=== PATIENT | female | born 1985 | race African-American/Black ===

== ENCOUNTER → 2017-05-02 | Outpatient (CLI) | payer OTHER ==
[~2017-05-02] MED LIST: FLUC200T PO; METR0.7510 PV; ONDA4TAB46 PO; SULF800T23 PO
== END | disposition home or self-care (01) ==
LOC: C.PAPS 12:47
PROVIDERS: ATTEND Physician Assistant
DX: Z12.4 Encounter for screening for malignant neoplasm of cervix (principal)

== ENCOUNTER → 2017-05-02 | Outpatient (CLI) | payer OTHER | END | disposition home or self-care (01) | LOC: C.LABSPEC 11:32 | PROVIDERS: ATTEND Physician Assistant | DX: N89.8 Other specified noninflammatory disorders of vagina (principal) ==

== ENCOUNTER 2017-06-25 04:24 | Emergency (ER) | payer OTHER ==
[~2017-06-25] VITALS: Ht 160 cm; Wt 74.7 kg
[2017-06-25 04:28] VITALS: Ht 160 cm; Wt 74.7 kg
[2017-06-25] MEDS ORDERED: FLUC200T PO (04:56)
[2017-06-25] MEDS ORDERED: METR0.7510 PV (04:56)
[2017-06-25] MEDS ORDERED: SODIUM CHLORIDE 0.9% 1000ML 1,000 ML IV STA (05:29)
[2017-06-25] MEDS ORDERED: ONDANSETRON INJ 2 MG/ML 2 ML VIAL IV STA (05:29)
[2017-06-25 05:43] LABS: BASO % 0.2 %; BASO ABS # 0.02 K/uL (0-0.2); COMPLETE YES; EOS % 1.4 %; HEMATOCRIT 36.6 % (37-47); IG% 0.4 %; LYMPH % 15.9 %; LYMPH ABS # 1.36 K/uL (1.2-3.4); MEAN CELL VOLUME 80.3 fL (80-100); MEAN CORPUSCULAR HEMOGLOBIN 28.5 pg (25-34); MEAN CORPUSCULAR HGB CONC 35.5 g/dl (32-36); MEAN PLATELET VOLUME 10.4 fL (7.4-10.4); MONO % 9.1 %; PLATELET COUNT 327 K/uL (130-400); RED BLOOD COUNT 4.56 M/uL (4.2-5.4); WHITE BLOOD COUNT 8.56 K/uL (4.8-10.8)
[2017-06-25 06:04] LABS: BUN/CREATININE RATIO 10.3 (10-20); CREATININE 0.88 mg/dl (0.60-1.20); POTASSIUM 3.2 mmol/L (3.5-5.1)
[2017-06-25] MEDS ORDERED: ONDA4TAB46 PO (06:19)
--- NOTE | 2017-06-25 06:26 | EMERGENCY ROOM VISIT NOTE ---
History Report prepared by Guillaume: Natalie Huerta Under the Supervision of: Dr. Priyanka Jolley D.O. First contact with patient: 05:09 Chief Complaint: NAUSEA Stated Complaint: NAUSEA/VOMITING/DIZZY Nursing Triage Summary: Nausea and vomiting since midnight. Pt is 6wks . History of Present Illness The patient is a 32 year old female who presents to the Emergency Room with complaints of an episode of nausea starting this morning. The patient states that she is and has been sick throughout the . She reports that this morning she was doing her hair and was bent over for a while. She states that when she sat up, she became very dizzy and nauseous. She reports that she vomited and it only made it worse. She states she tried to lie down and drink some water with no relief. She states she came to the ED because her dizziness continued to worsen. She states that every time she moved her head she felt like she was going to fall over or pass out. She notes that she struggled to talk and denies ever having this before. She notes her LNMP was May 09. She has . She notes she is not planning to keep this . She denies abdominal pain. Source of History: patient Onset: this morning Position: other (global) Quality: other (global) Timing: other (episode) Modifying Factors (Worsening): other (vomiting) Associated Symptoms: + vomiting, No abdominal pain Note: The patient complains of dizziness. The patient denies ever having these symptoms before Review of Systems See HPI for pertinent positives & negatives. A total of 10 systems reviewed and were otherwise negative. Past Medical & Surgical Medical Problems: (1) Kidney stone Family History No pertinent family history Social History Smoking Status: Never Smoker Alcohol Use: occasionally Marital Status: in relationship Housing Status: lives with family Occupation Status: employed Current/Historical Medications Scheduled Metronidazole Vaginal (Metrogel Vag Gel), 1 APPL PV DAILY Scheduled PRN Fluconazole (Diflucan), 1 TAB PO UD PRN for yeast Ondansetron Hcl (Zofran), 4 MG PO Q6 PRN for Nausea Allergies Coded Allergies: Ketorolac Tromethamine (Verified Allergy, Unknown, hives, 06/25/17) Physical Exam Vital Signs Date Time Temp Pulse Resp B/P (MAP) Pulse Ox O2 Delivery O2 Flow Rate FiO2 06/25/17 06:50 36.5 90 22 121/79 100 06/25/17 06:23 36.5 90 22 121/79 100 Room Air 06/25/17 04:29 104 06/25/17 04:28 37.1 110 27 132/86 95 Room Air Physical Exam HEENT: Head - normocephalic and atraumatic Pupils are equal, round, and reactive to light. Extraocular eye muscles are intact, and sclera are anicteric. Nose - moist nasal mucosa without discharge. Mouth - moist buccal mucosa. Oropharynx is nonerythematous and there is no tonsillar exudate or edema noted. Neck: Supple; no JVD, nuchal rigidity, cervical lymphadenopathy. Heart: Regular rate and rhythm. There is a normal S1 and S2 with no murmurs, clicks, or gallops appreciated. Lungs: Clear to auscultation bilaterally with no wheezes, rales, or rhonchi. Abdomen: Soft, completely nontender, nondistended, with good bowel sounds. There are no palpable pulsatile masses or hepatosplenomegaly. There is no guarding, rigidity, or rebound noted. Extremities: No evidence of cyanosis, clubbing, or edema. There are easily palpable peripheral pulses. Skin: warm and dry with good turgor and no rashes. Medical Decision & Procedures Laboratory Results 06/25/17 04:30 Red Blood Count 4.56, Mean Corpuscular Volume 80.3, Mean Corpuscular Hemoglobin 28.5, Mean Corpuscular Hemoglobin Concent 35.5, Mean Platelet Volume 10.4, Neutrophils (%) (Auto) 73.0, Lymphocytes (%) (Auto) 15.9, Monocytes (%) (Auto) 9.1, Eosinophils (%) (Auto) 1.4, Basophils (%) (Auto) 0.2, Neutrophils # (Auto) 6.25, Lymphocytes # (Auto) 1.36, Monocytes # (Auto) 0.78, Eosinophils # (Auto) 0.12, Basophils # (Auto) 0.02 06/25/17 04:30 Test 06/25/17 04:30 White Blood Count 8.56 K/uL (4.8-10.8) Red Blood Count 4.56 M/uL (4.2-5.4) Hemoglobin 13.0 g/dL (12.0-16.0) Hematocrit 36.6 % (37-47) Mean Corpuscular Volume 80.3 fL (80-100) Mean Corpuscular Hemoglobin 28.5 pg (25-34) Mean Corpuscular Hemoglobin Concent 35.5 g/dl (32-36) Platelet Count 327 K/uL (130-400) Mean Platelet Volume 10.4 fL (7.4-10.4) Neutrophils (%) (Auto) 73.0 % Lymphocytes (%) (Auto) 15.9 % Monocytes (%) (Auto) 9.1 % Eosinophils (%) (Auto) 1.4 % Basophils (%) (Auto) 0.2 % Neutrophils # (Auto) 6.25 K/uL (1.4-6.5) Lymphocytes # (Auto) 1.36 K/uL (1.2-3.4) Monocytes # (Auto) 0.78 K/uL (0.11-0.59) Eosinophils # (Auto) 0.12 K/uL (0-0.5) Basophils # (Auto) 0.02 K/uL (0-0.2) RDW Standard Deviation 37.7 fL (36.4-46.3) RDW Coefficient of Variation 12.9 % (11.5-14.5) Immature Granulocyte % (Auto) 0.4 % Immature Granulocyte # (Auto) 0.03 K/uL (0.00-0.02) Anion Gap 9.0 mmol/L (3-11) Est Creatinine Clear Calc Drug Dose 90.5 ml/min Estimated GFR () 102.2 Estimated GFR (Non- 88.2 BUN/Creatinine Ratio 10.3 (10-20) Calcium Level 9.0 mg/dl (8.5-10.1) Laboratory results per my review. Medications Administered Medications (Trade) Dose Ordered Sig/Chris Route Start Time Stop Time Status Last Admin Dose Admin Sodium Chloride 1,000 ml @ 999 mls/hr Q1H1M STAT IV 06/25/17 05:29 06/25/17 06:29 DC 06/25/17 05:50 999 MLS/HR Ondansetron HCl (Zofran Inj) 4 mg NOW STAT IV 06/25/17 05:29 06/25/17 05:31 DC 06/25/17 05:51 4 MG Procedure 0529: Ordered Zofran Inj 4 mg IV, NSS 1000 ml @ 999 mls/hr IV. ED Course 0520: Past medical records reviewed. The patient was evaluated in room B7. A complete history and physical exam was performed. An IV lock was initiated and labs are drawn as above. 0529: Ordered Zofran Inj 4 mg IV, NSS 1000 ml @ 999 mls/hr IV. 0613: Upon reevaluation, the patient is feeling much better and is drinking Gatorade. I discussed findings and results with her. She verbalized agreement of the treatment plan. The patient was discharged home. Medical Decision This is a 32-year-old female patient who is 6 weeks presenting to the emergency department with lightheadedness and dizziness associated with vomiting. Differential diagnoses include dehydration, anemia, hyperemesis gravidarum. LABS: No leukocytosis Stable H&H Potassium slightly low at 3.2 Normal renal function The patient gives a history of vomiting during her first trimester and extreme nausea. She received IV Zofran and saline while here in the emergency department is feeling much better. Impression Primary Impression: Hypokalemia Additional Impressions: First trimester Vomiting affecting Scribe Attestation The scribe's documentation has been prepared under my direction and personally reviewed by me in its entirety. I confirm that the note above accurately reflects all work, treatment, procedures, and medical decision making performed by me. Departure Information Dispostion Home / Self-Care Prescriptions Ondansetron Hcl (ZOFRAN) 4 Mg Tab 4 MG PO Q6 Y for Nausea, #20 TAB Prov: Priyanka Jolley D.O. 06/25/17 Referrals No Doctor, Assigned (PCP) Forms HOME CARE DOCUMENTATION FORM, IMPORTANT VISIT INFORMATION Patient Instructions My [facility] Additional Instructions Rest. Take plenty of clear liquids Take a bland diet Zofran - 1 tab. every 4-6 hours for nausea Return to the ER for any abdominal pain Take foods high in potassium Problem Qualifiers
[2017-06-25 06:50] VITALS: BP 121/79; PULSE 90; TEMP 36.5; O2SAT 100
== END 2017-06-25 06:51 | disposition home or self-care (01) ==
LOC: EDBD 04:24 → C.EDB 04:25
DX: O21.1 Hyperemesis gravidarum with metabolic disturbance (principal); Z3A.01 Less than 8 weeks gestation of pregnancy; Z87.442 Personal history of urinary calculi; Z88.8 Allergy status to other drugs, medicaments and biological substances

== ENCOUNTER → 2017-07-31 | Outpatient (CLI) | payer OTHER ==
[~2017-07-31] MED LIST changes: -SULF800T23 PO
[2017-08-04 08:03] LABS: CHLAMYDIA TRACH RNA*** NOT DETECTED (NOT DETECTED); GC (NEIS GONORRHOEAE)RNA** NOT DETECTED (NOT DETECTED)
== END | disposition home or self-care (01) ==
LOC: C.LABSPEC 13:30
PROVIDERS: ATTEND Physician Assistant
DX: N89.8 Other specified noninflammatory disorders of vagina (principal)

== ENCOUNTER → 2017-08-22 | Outpatient (CLI) | payer OTHER | END | disposition home or self-care (01) | LOC: C.LABSPEC 17:00 | PROVIDERS: ATTEND Physician Assistant | DX: N89.8 Other specified noninflammatory disorders of vagina (principal) ==

== ENCOUNTER 2017-10-08 10:55 | Emergency (ER) | payer OTHER ==
[~2017-10-08] VITALS: Ht 160 cm; Wt 75.5 kg
[2017-10-08 11:04] VITALS: Ht 160 cm; Wt 75.5 kg
[2017-10-08] MEDS ORDERED: SODIUM CHLORIDE 0.9% 1000ML 1,000 ML IV STA (11:43)
[2017-10-08] MEDS ORDERED: ACETAMINOPHEN 500 MG TAB PO STA (11:43)
[2017-10-08 12:10] LABS: BASO % 0.1 %; BASO ABS # 0.01 K/uL (0-0.2); COMPLETE YES; HEMATOCRIT 38.8 % (37-47); IG% 0.3 %; LYMPH % 9.6 %; LYMPH ABS # 0.97 K/uL (1.2-3.4); MEAN CELL VOLUME 81.7 fL (80-100); MEAN CORPUSCULAR HEMOGLOBIN 28.2 pg (25-34); MEAN CORPUSCULAR HGB CONC 34.5 g/dl (32-36); MEAN PLATELET VOLUME 10.3 fL (7.4-10.4); PLATELET COUNT 251 K/uL (130-400); RED BLOOD COUNT 4.75 M/uL (4.2-5.4); WHITE BLOOD COUNT 10.12 K/uL (4.8-10.8)
--- NOTE | 2017-10-08 12:25 | DIAGNOSTIC IMAGING REPORT ---
CHEST 2 VIEWS ROUTINE CLINICAL HISTORY: Fever. COMPARISON STUDY: No previous studies for comparison. FINDINGS: Lung volumes are normal. Lungs are clear. No pneumothorax or pleural effusion is present. Pulmonary vascularity is normal. Cardiomediastinal silhouette is normal. IMPRESSION: No acute cardiopulmonary findings. Electronically signed by: Jam Dunham M.D. 10/08/2017 12:23 PM Dictated Date/Time: 10/08/2017 12:23 PM
[2017-10-08 12:27] LABS: BUN/CREATININE RATIO 2.7 (10-20); CALCIUM 8.7 mg/dl (8.5-10.1); CREATININE 0.89 mg/dl (0.60-1.20); POTASSIUM 3.8 mmol/L (3.5-5.1)
[2017-10-08 13:26] LABS: URINE APPEARANCE CLEAR (CLEAR); URINE BILIRUBIN NEG (NEG); URINE COLOR YELLOW; URINE EPITHELIAL CELL AUTO >30 /lpf (0-5); URINE NITRITE NEG (NEG); URINE SPECIFIC GRAVITY 1.009 (1.000-1.030); UROBILINOGEN NEG (NEG)
[2017-10-08 13:34] LABS: MANUAL MICROSCOPIC REQUIRED? NO; REVIEW REQ? NO
[2017-10-08] MEDS ORDERED: SULFAMETHOXAZOLE/TRIMETHOPRIM DS 800/160MG TAB PO STA (13:47)
[2017-10-08] MEDS ORDERED: SULF800T23 PO (13:58)
--- NOTE | 2017-10-08 13:58 | EMERGENCY ROOM VISIT NOTE ---
ED Visit Note First contact with patient: 11:10 CHIEF COMPLAINT: Fever and muscle aches 3 days HISTORY OF PRESENT ILLNESS: Patient is a generally healthy 32-year-old - [place] female who presents emergency department for evaluation of "flulike symptoms" over the last several days. She states that she woke up on Friday with flulike symptoms, she describes subjectively feeling hot and then having chills, and generalized body and muscle aches. She felt a little bit better throughout the day, and her symptoms worsened again Friday evening, and persisted for the next 3 days. The first time she checked her temperature was last evening, it was 104F. She denies any associated cough, sinus or nasal congestion or sore throat. No ear pain. She denies any skin rashes. No nausea or vomiting. She has been taking DayQuil and NyQuil for her symptoms, and has increased her fluid intake. Her temperature prior to arrival in the emergency department was 100F orally. She denies any specific sick contacts. She denies any diarrhea. She does note that her urine seemed clear over the weekend, but then she noted some pain with voiding, some suprapubic discomfort and an odor to her urine, and she is concerned that she could have a UTI. She denies any back or flank pain. She denies any chest pain or shortness of breath. No posterior neck pain or stiffness. She denies any sick contacts. REVIEW OF SYSTEMS: Review of systems as per HPI. All other systems reviewed were negative. 10 systems reviewed. PMH: Electronic medical records are reviewed and summarized as above/below. See Problem List. SOCIAL HISTORY: Patient lives at home with her daughter. Employed. She does not smoke.. PHYSICAL EXAM: Vital Signs: Reviewed Nurse's notes. Temperature 37.6C orally. MENTAL STATUS: Alert and cooperative. Nontoxic appearing. HEAD: Atraumatic, without temporal or scalp tenderness. EYES: PERRL, EOMI, no discharge or injection. EARS: Tympanic membranes intact, not inflamed, have normal contour. External canals clear. NOSE: Nares patent, turbinates moist without rhinorrhea. MOUTH: Mucous membranes moist, no lesions, tongue and gums appear normal. THROAT: No pharyngeal injection, exudates, or tonsillar hypertrophy. Airway is patent. NECK: Supple, nontender, no lymphadenopathy. HEART: Tachycardic rate and rhythm without murmurs, ectopy, gallops, or rubs. LUNGS: Clear to auscultation and breath sounds equal, no wheezes, rales, or rhonchi. ABDOMEN: Bowel sounds are present. Abdomen is soft, mildly tender in the suprapubic region, no guarding, rebound or rigidity. There is no CVA tenderness. SKIN: Normal. NEUROLOGICAL: Sensory and motor functions grossly intact. Normal gait. EMERGENCY DEPARTMENT COURSE: The patient was seen and examined as above. Old records were reviewed. She has a low-grade fever, and was mildly tachycardic. IV lock was initiated. CBC with differential, BMP and urinalysis were collected. She was hydrated with a liter bolus of normal saline solution over 1 hour and given Tylenol 1 g orally for her fever. She cannot tolerate NSAIDs due to allergy. Chest x-ray was obtained and was unremarkable. Laboratory studies noted a normal white count. H&H is normal. Electrolytes are without significant abnormality. Renal function is not elevated. Urinalysis notes trace occult blood, large amount of leuk esterase and WBCs and 2+ bacteria, with greater than 30 epithelial cells. Given her symptoms, despite the potential for contamination of the sample, urine culture was ordered and is pending. Urine test was negative. The patient was reassessed. Tachycardia had improved slightly with IV hydration and fever management. Temperature at discharge was 36.8C orally. All laboratory and diagnostic imaging studies were reviewed with her. She has a mild symptoms consistent with a UTI, which urinalysis may also indicate. She has fever, body and muscle aches as well, with no other upper respiratory findings. Chest is clear. She does not have any nuchal rigidity to suspect meningitis or encephalitis. Discussed with her the possibility of a UTI versus an early pyelonephritis, she has no abdominal pain, flank pain, nausea or vomiting. She may have a concurrent UTI and viral/febrile illness. She was placed on Bactrim pending the urine culture. She was given her first dose in the emergency department. Fever management was reviewed with her. She was encouraged to push oral fluids, rest and remain well-hydrated. She was educated on the worrisome signs or symptoms for which she should return to the emergency department including, but not limited to persistent fevers, not controlled with medications, vomiting, or abdominal back or flank pain. She expressed understanding of this and was agreeable. She was discharged home in stable condition. Medication reconciliation: I attest that I have personally reviewed the patient' s current medication list. Blood pressure screening : Patient was found to have normal blood pressure on screening and does not require follow-up. CHEST 2 VIEWS ROUTINE CLINICAL HISTORY: Fever. COMPARISON STUDY: No previous studies for comparison. FINDINGS: Lung volumes are normal. Lungs are clear. No pneumothorax or pleural effusion is present. Pulmonary vascularity is normal. Cardiomediastinal silhouette is normal. IMPRESSION: No acute cardiopulmonary findings. Problem List Medical Problems: (1) Bladder infection Status: Resolved (2) Bladder infection Status: Resolved (3) Cold sore Status: Resolved (4) First trimester Status: Resolved (5) Hypokalemia Status: Resolved (6) Kidney stone Status: Resolved (7) Nausea Status: Resolved (8) Sore throat Status: Resolved (9) Sore throat Status: Resolved (10) Vomiting affecting Status: Resolved Current/Historical Medications Scheduled Sulfa/Trimethoprim (Bactrim Ds 800MG/160MG), 1 TAB PO BID Allergies Coded Allergies: Ketorolac Tromethamine (Verified Allergy, Unknown, hives, 10/08/17) Vital Signs Date Time Temp Pulse Resp B/P (MAP) Pulse Ox O2 Delivery O2 Flow Rate FiO2 10/08/17 14:23 36.8 104 18 125/79 100 10/08/17 14:19 104 18 125/79 100 10/08/17 12:53 96 18 107/85 100 Room Air 10/08/17 11:04 37.6 113 18 120/76 98 Room Air Laboratory Results 10/08/17 11:55 Red Blood Count 4.75, Mean Corpuscular Volume 81.7, Mean Corpuscular Hemoglobin 28.2, Mean Corpuscular Hemoglobin Concent 34.5, Mean Platelet Volume 10.3, Neutrophils (%) (Auto) 74.0, Lymphocytes (%) (Auto) 9.6, Monocytes (%) (Auto) 16.0, Eosinophils (%) (Auto) 0.0, Basophils (%) (Auto) 0.1, Neutrophils # (Auto ) 7.49, Lymphocytes # (Auto) 0.97, Monocytes # (Auto) 1.62, Eosinophils # (Auto ) 0.00, Basophils # (Auto) 0.01 10/08/17 11:55 Test 10/08/17 11:55 10/08/17 12:00 White Blood Count 10.12 K/uL (4.8-10.8) Red Blood Count 4.75 M/uL (4.2-5.4) Hemoglobin 13.4 g/dL (12.0-16.0) Hematocrit 38.8 % (37-47) Mean Corpuscular Volume 81.7 fL (80-100) Mean Corpuscular Hemoglobin 28.2 pg (25-34) Mean Corpuscular Hemoglobin Concent 34.5 g/dl (32-36) Platelet Count 251 K/uL (130-400) Mean Platelet Volume 10.3 fL (7.4-10.4) Neutrophils (%) (Auto) 74.0 % Lymphocytes (%) (Auto) 9.6 % Monocytes (%) (Auto) 16.0 % Eosinophils (%) (Auto) 0.0 % Basophils (%) (Auto) 0.1 % Neutrophils # (Auto) 7.49 K/uL (1.4-6.5) Lymphocytes # (Auto) 0.97 K/uL (1.2-3.4) Monocytes # (Auto) 1.62 K/uL (0.11-0.59) Eosinophils # (Auto) 0.00 K/uL (0-0.5) Basophils # (Auto) 0.01 K/uL (0-0.2) RDW Standard Deviation 39.4 fL (36.4-46.3) RDW Coefficient of Variation 13.1 % (11.5-14.5) Immature Granulocyte % (Auto) 0.3 % Immature Granulocyte # (Auto) 0.03 K/uL (0.00-0.02) Anion Gap 8.0 mmol/L (3-11) Est Creatinine Clear Calc Drug Dose 89.9 ml/min Estimated GFR () 100.8 Estimated GFR (Non- 87.0 BUN/Creatinine Ratio 2.7 (10-20) Calcium Level 8.7 mg/dl (8.5-10.1) Urine Color YELLOW Urine Appearance CLEAR (CLEAR) Urine pH 7.0 (4.5-7.5) Urine Specific [place] 1.009 (1.000-1.030) Urine Protein NEG (NEG) Urine Glucose (UA) NEG (NEG) Urine Ketones NEG (NEG) Urine Occult Blood TRACE (NEG) Urine Nitrite NEG (NEG) Urine Bilirubin NEG (NEG) Urine Urobilinogen NEG (NEG) Urine Leukocyte Esterase LARGE (NEG) Urine WBC (Auto) >30 /hpf (0-5) Urine RBC (Auto) 0-4 /hpf (0-4) Urine Hyaline Casts (Auto) 0 /lpf (0-5) Urine Epithelial Cells (Auto) >30 /lpf (0-5) Urine Bacteria (Auto) 2+ (NEG) Urine Test NEG (NEG) Medications Administered Medications (Trade) Dose Ordered Sig/Chris Route Start Time Stop Time Status Last Admin Dose Admin Acetaminophen (Tylenol Tab) 1,000 mg NOW STAT PO 10/08/17 11:43 10/08/17 11:45 DC 10/08/17 11:52 1,000 MG Sodium Chloride 1,000 ml @ 999 mls/hr Q1H1M STAT IV 10/08/17 11:43 10/08/17 12:43 DC 10/08/17 12:04 999 MLS/HR Trimethoprim/ Sulfamethoxazole (Septra Ds 800/ 160MG Tab) 1 tab NOW STAT PO 10/08/17 13:47 10/08/17 13:48 DC 10/08/17 14:18 1 TAB Departure Information Impression Primary Impression: UTI (urinary tract infection) Additional Impression: Acute febrile illness Prescriptions Sulfa/Trimethoprim (Bactrim Ds 800MG/160MG) Tab 1 TAB PO BID, #14 TAB Prov: Ayesha Cid PA 10/08/17 Referrals No Doctor, Assigned (PCP) Patient Instructions My [facility] Additional Instructions Trimethoprim-Sulfamethoxazole(Bactrim DS): Take one pill twice daily for 7 days for your urine infection. All antibiotics can cause diarrhea. If this occurs and you feel worse or it does not resolve in 1-2 days follow up with your doctor or return to the Emergency Department as this could be signs of serious underlying problems. Any medication can cause an allergic reaction, stop the pills immediately and return to the ER for rash, hives, breathing difficulties, or swelling. Acetaminophen(Tylenol) may be used for fever or pain. Use 1000mg every eight hours as needed. Avoid using more than 3000mg in a 24 hour period. This is available over the counter. Rest and drink plenty of fluids as tolerated. Slow sips of water or sports drinks are recommended instead of large amounts all at once. Continue current medications. Once your stomach is settled start with a clear liquid diet (jello, soup broth, etc.) and then advance as tolerated. You should avoid full, heavy meals for about 24 hrs from the time your symptoms resolved. Return to the ER immediately for worsening or persistent abdominal/back pain, vomiting, fevers, worsening of your condition, or as needed. Follow up with your primary physician within 2-3 days for a recheck of the current condition Problem Qualifiers
[2017-10-08 14:23] VITALS: BP 125/79; PULSE 104; TEMP 36.8; O2SAT 100
--- NOTE | 2017-10-10 11:33 | Pharmacy Progress Note ---
ED Pharmacist Culture FollowUp Date of Service: Oct 10, 2017. Patient was sent home with a prescription for Bactrim DS 1 PO BID x 7 days, which should cover the enscherichia fergusonii growing from the patient's URINE culture.
== END 2017-10-08 14:24 | disposition home or self-care (01) ==
LOC: C.EDB 10:57 → C.EDA 14:24
DX: N39.0 Urinary tract infection, site not specified (principal); R50.9 Fever, unspecified; Z87.442 Personal history of urinary calculi